=== PATIENT | female | born 1985 ===

== ENCOUNTER 2021-12-04 18:38 | Observation (INO) | payer MEDICAID ==
[2021-12-04 19:33] LABS: AMPHETAMINES,URINE POSITIVE (NEGATIVE); BARBITURATES,URINE NEGATIVE (NEGATIVE); BENZODIAZEPINE,URINE POSITIVE (NEGATIVE); MDMA (ECSTASY), URINE POSITIVE (NEGATIVE); METHADONE,URINE NEGATIVE (NEGATIVE); METHAMPHETAMINES,URINE POSITIVE (NEGATIVE); OPIATES,URINE NEGATIVE (NEGATIVE); OXYCODONE,URINE NEGATIVE (NEGATIVE); PHENCYCLIDINE,URINE NEGATIVE (NEGATIVE); TCA,URINE NEGATIVE (NEGATIVE)
[2021-12-04 19:44] LABS: ANION GAP 13.3 mEq/L (7-13); CHLORIDE,CL 102 mmol/L (98-107); SODIUM,NA 139 mmol/L (136-145)
[2021-12-04 19:50] LABS: ACETAMINOPHEN 0 ug/mL (10-30 (Therapeutic))
[2021-12-04] MEDS ORDERED: Haloperidol Lactate 5 MG/ML SDV IM ONE (20:05)
[2021-12-04] MEDS ORDERED: diphenhydrAMINE 50 MG/ML SDV IVPUSH ONE (20:05)
[2021-12-04] MEDS ORDERED: LORazepam 2 MG/ML SDV IVPUSH ONE (20:05)
[2021-12-04] MEDS ORDERED: Acetaminophen 325 MG Tab PO PRN (21:12)
[2021-12-04] MEDS ORDERED: Docusate Sodium 100 MG Cap PO PRN (21:12)
[2021-12-04] MEDS ORDERED: Ondansetron 4 MG/2 ML SDV IVPUSH PRN (21:12)
[2021-12-04] MEDS ORDERED: Sodium Chloride 0.9% 10 ML Syringe FLUSH PRN (21:12)
[2021-12-04] MEDS ORDERED: Sodium Chloride 0.9% 1,000 ML IV SCH (21:15)
[2021-12-04] MEDS ORDERED: NS + KCl 20mEq/L 1,000 ML IV SCH (21:30)
[2021-12-05] MEDS ORDERED: Enoxaparin 40 MG/0.4 ML Syringe SUBCUT SCH (09:00)
[2021-12-05] MEDS ORDERED: Sodium Chloride 0.9% 10 ML Syringe FLUSH SCH (09:00)
[2021-12-05] MEDS ORDERED: Levothyroxine 75 MCG Tab PO SCH ×2 (11:00→15:00)
[2021-12-05] MEDS ORDERED: Diazepam 2 MG Tab PO PRN (13:57)
[2021-12-05] MEDS ORDERED: ARIPIPRAZOLE 5 MG PO SCH (14:00)
[2021-12-05] MEDS ORDERED: Levothyroxine 50 MCG Tab PO SCH (15:00)
[2021-12-05] MEDS ORDERED: Levothyroxine 112 MCG Tab PO SCH (15:00)
[2021-12-05] MEDS ORDERED: Bismuth Subsalicylate 262 MG Tab.Chew PO ONE (15:45)
[2021-12-05] MEDS ORDERED: metroNIDAZOLE 250 MG Tab PO SCH (21:00)
[2021-12-05] MEDS ORDERED: Propranolol 10 MG Tab PO SCH (21:00)
== END 2021-12-05 16:59 ==
LOC: DL.ED 18:38 → DL.MS 20:54 → UNDOADMOB 20:54
PROVIDERS: ADMIT Internal Medicine; ATTEND Internal Medicine
DX: R45.1 Restlessness and agitation (principal); F19.10 Other psychoactive substance abuse, uncomplicated; E03.9 Hypothyroidism, unspecified; E87.6 Hypokalemia; Z79.899 Other long term (current) drug therapy; Z98.890 Other specified postprocedural states; Z20.822 Contact with and (suspected) exposure to COVID-19
CPT/HCPCS: 36415; 80053; 80143; 80179; 80305; 80307; 81003; 83605; 84443; 84703; 85025; 87635; A9270; J1200; J1630; J1650; J2060; J3480; J3490; U0002

== ENCOUNTER 2021-12-07 17:42 | Emergency (ER) | payer MEDICAID ==
[2021-12-07 17:54] LABS: ANION GAP 11.6 mEq/L (7-13); CHLORIDE,CL 105 mmol/L (98-107); ESTIMATED GFR > 60; SODIUM,NA 141 mmol/L (136-145)
[2021-12-07 18:01] LABS: AMPHETAMINES,URINE POSITIVE (NEGATIVE); BARBITURATES,URINE NEGATIVE (NEGATIVE); BENZODIAZEPINE,URINE POSITIVE (NEGATIVE); MDMA (ECSTASY), URINE NEGATIVE (NEGATIVE); METHADONE,URINE NEGATIVE (NEGATIVE); METHAMPHETAMINES,URINE POSITIVE (NEGATIVE); OPIATES,URINE NEGATIVE (NEGATIVE); OXYCODONE,URINE NEGATIVE (NEGATIVE); PHENCYCLIDINE,URINE NEGATIVE (NEGATIVE); TCA,URINE NEGATIVE (NEGATIVE)
== END 2021-12-07 18:34 | disposition home or self-care (01) ==
LOC: DL.ED 17:42
DX: T50.901A Poisoning by unspecified drugs, medicaments and biological substances, accidental (unintentional), initial encounter (principal); F60.3 Borderline personality disorder; Z79.899 Other long term (current) drug therapy
CPT/HCPCS: 36415; 80053; 80305-QW; 80307; 81001; 82140; 83605; 85025; 87086; 99283; 99285